=== PATIENT | female | born 1990 | race Caucasian/White ===

== ENCOUNTER 2017-02-02 04:11 | Inpatient (IN) | payer BC ==
[~2017-02-02] VITALS: Ht 165.1 cm; Wt 100.0 kg
--- NOTE | ~2017-02-02 | OR ---
PATIENT'S NAME: AGUILA ELIZABETH [facility] AGE: 26 Y [address] ROOM: [address] [address] LOCATION: [facility] ADMIT DATE: 02/02/2017 OR/Procedure Report DISCHARGE DATE: FAMILY PHYSICIAN: Hayde Rodriguez MD ATTENDING PHYSICIAN: Krystal Frye SURGEON: Krystal Frye MD DIRECTOR OPERATIONS: Mimi Chang MD DATE OF PROCEDURE: 02/02/2017 PREOPERATIVE DIAGNOSES: 1. Intrauterine at 38 weeks. 2. Spontaneous rupture of membranes. 3. Prior section. POSTOPERATIVE DIAGNOSES: 1. Intrauterine at 38 weeks. 2. Spontaneous rupture of membranes. 3. Prior section. PROCEDURE PERFORMED: Repeat low transverse section. ANESTHESIA: General endotracheal. BLOOD LOSS: 500 mL. COMPLICATIONS: None. DESCRIPTION OF PROCEDURE: The patient was taken to the operating room and placed under a general endotracheal anesthetic. A Howard catheter had previously been placed. DICTATION ENDS HERE. KRYSTAL FRYE MD KHP/modl /[id number] d: 02/02/17 1227 t: 02/06/17 0504, OPERATIVE SUMMARY
--- NOTE | ~2017-02-02 | OR ---
[facility] 26 [facility] [address] ROOM: [place] [address] LOCATION: GO ADMIT DATE: 02/02/2017 OR/Procedure Report DISCHARGE DATE: 02/05/2017 FAMILY PHYSICIAN: Hayde Rodriguez MD ATTENDING PHYSICIAN: Krystal Frye SURGEON: Krystal Frye MD CHEESE SPECIALIST: Mimi Chagn MD. DATE OF PROCEDURE: 02/02/2017 PREOPERATIVE DIAGNOSES: 1. Intrauterine at 38 weeks. 2. Spontaneous rupture of membranes. 3. Prior section. 4. Thrombocytopenia. POSTOPERATIVE DIAGNOSES: 1. Intrauterine at 38 weeks. 2. Spontaneous rupture of membranes. 3. Prior section. 4. Thrombocytopenia. PROCEDURE: Repeat low-transverse section. ANESTHESIA: General endotracheal. BLOOD LOSS: 500 mL. COMPLICATIONS: None. PROCEDURE IN DETAIL: The patient was taken to the operating room and placed under general endotracheal anesthetic. A Howard had been previously placed. A Pfannenstiel skin incision was made with a knife and carried down to the level of the fascia. This was all done after verbal time-out. The fascia was nicked in the midline. The incision was taken out laterally. The fascia sharply and bluntly dissected from the underlying rectus muscles. The peritoneum was opened sharply and incised and stretched. A bladder blade was placed. The bladder reflection was taken down sharply. The bladder blade was placed behind the bladder reflection. The low-transverse uterine incision was made with a knife. The vertex was grasped and delivered in a straight occiput posterior position. The face was right under the uterine incision. Shoulders and body were easily delivered. Baby girl lets out a spontaneous cry as her cord was doubly clamped and cut. She was handed off to the warmer. A three- vessel cord was noted. Placenta delivered manually and intact. The uterus was exteriorized. Tubes and ovaries looked normal. The uterine incision was closed in a running locking stitch of 0 chromic. A second imbricating stitch [facility]: [facility] 26 Y [address] ROOM: [place] [address] LOCATION: [facility] ADMIT DATE: 02/02/2017 OR/Procedure Report DISCHARGE DATE: 02/05/2017 FAMILY PHYSICIAN: Hayde Rodriguez MD ATTENDING PHYSICIAN: Krystal Frye was performed. The uterus was replaced within the peritoneal cavity. The colic gutters were inspected and found to be dry. The peritoneum was closed with 2-0 Vicryl. 0 Vicryl was used to close the fascia and 4-0 Dexon was used to close the skin. Steri-Strips and benzoin were placed. The patient tolerated the procedure well. Mom and baby are doing well in recovery. KRYSTAL H MD HONORIO KHP/modl /[id number] d: 02/06/1705 t: 03/04/17 0857, OPERATIVE SUMMARY
--- NOTE | ~2017-02-02 | DS ---
PATIENT'S NAME: AGUILA ELIZABETH [facility] AGE: 26 Y [address] ROOM: [address] [address] LOCATION: [facility] ADMIT DATE: 02/02/2017 Discharge Summary DISCHARGE DATE: 02/05/2017 FAMILY PHYSICIAN: Hayde Rodriguez MD ATTENDING PHYSICIAN: Krystal Frye DISCHARGE DIAGNOSES: 1. Intrauterine at 38 weeks. 2. Spontaneous rupture of membranes. 3. Prior section. 4. Thrombocytopenia. PROCEDURE: Repeat low transverse section. HISTORY: The patient presents on 02/02/2017 at 38 weeks with spontaneous rupture of membranes. She has a previous section scheduled. She was prepped for section. HOSPITAL COURSE: Repeat low transverse section was performed. She did have thrombocytopenia with a platelet count of 83,000, so general endotracheal anesthetic was performed. The patient did well and had morphine and Percocet afterwards for pain. She took Percocet then over the next 3 days, her Howard was out 6 hours after surgery, she was able to ambulate and did very well. Her incision remained clean, dry and intact and baby girl remained with her in the room. By postoperative day 3, she was ready for discharge. We will send her home on Percocet and Tylenol. She will follow up with Dr. Frye in 2 and 6 weeks time. MD ANDREEA ALEXP/merlel /[id number] d: 02/06/17 0627 t: 03/04/17 0859, DISCHARGE SUMMARY
--- NOTE | ~2017-02-02 | HP ---
PATIENT'S NAME: CLARA [facility] AGE: 26 Y [address] ROOM: [place] [address] LOCATION: [facility] ADMIT DATE: 02/02/2017 History & Physical DISCHARGE DATE: FAMILY PHYSICIAN: Hayde Rodriguez MD ATTENDING PHYSICIAN: Krystal Frye DATE OF SERVICE: HISTORY OF PRESENT ILLNESS: This is a 26-year-old 2, para 1-0-0-1 with a due date of 02/12/2017. She was set up for a repeat section this Wednesday but presents this morning with ruptured membranes. She had rupture of membranes and drove from home which is about 2-1/2 to 3 hours. She is still 1 cm, but obviously leaking fluid on sterile speculum exam. care is complicated by the fact that her daughter has Angelman syndrome. Also when we had her here, her platelet count was 83,000. CURRENT MEDICATIONS: vitamins. ALLERGIES: NONE KNOWN. OPERATIONS: Primary low transverse section done for nonreassuring heart tones with her daughter. LABORATORY DATA: Her group B strep testing is negative. She is A positive. Antibody screen negative, rubella immune, RPR nonreactive, hepatitis B nonreactive, HIV negative. PHYSICAL EXAMINATION: LUNGS: Clear. HEART: Regular rate and rhythm. ABDOMEN: Gravid. IMPRESSION: 1. Intrauterine at 38+ weeks gestation. 2. Spontaneous rupture of membranes. 3. Prior section. 4. Thrombocytopenia. PLAN: We will need to do a general because of the thrombocytopenia. The patient PATIENT'S NAME: CLARA [facility] AGE: 26 Y [address] ROOM: [place] [id number] LOCATION: [facility] ADMIT DATE: 02/02/2017 History & Physical DISCHARGE DATE: FAMILY PHYSICIAN: Hayde Rodriguez MD ATTENDING PHYSICIAN: Krystal Frye understands surgical risks to include, but not limited to, bleeding, transfusion, infection, injury to other organs, and need for additional surgery. Appropriate consents were signed and witnessed. KRYSTAL FRYE MD KHJanny/modl /[id number] D: [id number] T: [id number] HISTORY & PHYSICAL
[~2017-02-02 04:11] MED LIST: ACETAMINOPHEN325 MG PO; B-125000 MCG PO; FOLIC ACID 40400 MCG PO; FOLIC ACID1 MG PO; PRENATAL 1+1)(P1 TAB PO
[2017-02-02 05:36] LABS: BASOPHIL % 0.3 %; EOSINOPHIL # 0.1 K/uL (0.0-0.5); EOSINOPHIL % 0.8 %; HEMATOCRIT 36.2 % (33.0-46.0); HEMOGLOBIN 12.2 g/dL (11.0-15.0); IMMATURE GRANULOCYTE # 0.1 K/uL (0.0-0.3); IMMATURE GRANULOCYTE % 0.9 %; LYMPHOCYTE # 2.6 K/uL (0.8-4.0); LYMPHOCYTE % 21.7 %; MCH 29.1 pg (27.0-34.0); MCHC 33.7 gm/dL (32.0-36.5); MCV 86.4 fl (83.0-98.0); MONOCYTE # 0.7 K/uL (0.0-1.0); MONOCYTE % 6.2 %; MPV 11.6 fl (9.4-12.4); NEUTROPHIL # (ANC) 8.3 K/uL (1.8-7.8); NEUTROPHIL % 70.1 %; NRBC % 0 /100WBC (0-0.00); PLATELET COUNT 83 K/uL (150-450); RBC 4.19 M/uL (3.50-5.00); RDW-CV 14.2 % (11.9-14.6); WBC 11.8 K/uL (4.0-11.0)
[2017-02-02] MEDS ORDERED: METHYL PO (07:19)
[2017-02-02] MEDS ORDERED: OPTIMIZED FOLATE PO (07:22)
[2017-02-03 05:38] LABS: BASOPHIL % 0.3 %; EOSINOPHIL # 0.1 K/uL (0.0-0.5); EOSINOPHIL % 0.6 %; HEMATOCRIT 33.3 % (33.0-46.0); IMMATURE GRANULOCYTE # 0.1 K/uL (0.0-0.3); IMMATURE GRANULOCYTE % 0.6 %; LYMPHOCYTE # 3.1 K/uL (0.8-4.0); LYMPHOCYTE % 21.9 %; MCH 29.2 pg (27.0-34.0); MCV 88.3 fl (83.0-98.0); MONOCYTE # 0.9 K/uL (0.0-1.0); MONOCYTE % 6.2 %; MPV 11.7 fl (9.4-12.4); NEUTROPHIL # (ANC) 9.8 K/uL (1.8-7.8); NEUTROPHIL % 70.4 %; NRBC % 0 /100WBC (0-0.00); PLATELET COUNT 88 K/uL (150-450); RBC 3.77 M/uL (3.50-5.00); RDW-CV 14.4 % (11.9-14.6)
[2017-02-05] MEDS ORDERED: PERCOCET 5-3251 EACH PO (10:24)
== END 2017-02-05 14:00 | disposition disaster alternative care site (69) | DRG 765 ==
LOC: GOBM 04:11 → GOBS 04:12 → GOBM 04:13 → GOBS 06:08 → EDSTATUS 02-05 06:00 → GOBS 02-05 06:00
PROVIDERS: ADMIT Obstetrics & Gynecology
PROC: 10D00Z1 Extraction of Products of Conception, Low, Open Approach (ICD-10-PCS; principal; 2017-02-02)
DX: O34.211 Maternal care for low transverse scar from previous cesarean delivery (principal); O99.12 Other diseases of the blood and blood-forming organs and certain disorders involving the immune mechanism complicating childbirth; D69.6 Thrombocytopenia, unspecified; Z37.0 Single live birth; Z3A.38 38 weeks gestation of pregnancy
CPT/HCPCS: J0690; J2001; J2270; J2590; J3010; J7120